=== PATIENT | female | born 1980 | race Caucasian/White ===

== ENCOUNTER → 2018-09-16 | Outpatient (CLI) | payer BC ==
[~2018-09-16] MED LIST: ALBU90OI INH; ALPR.5 PO; AMOX500 PO; BUPR150ER PO; CEPH500 PO; HYDACE5 PO; Kristalose20 GM PO; MULVITMINE; TERC.8TC PV
== END | disposition home or self-care (01) ==
LOC: PLD 09:46 → LAB SHORT 09:46
DX: D22.71 Melanocytic nevi of right lower limb, including hip (principal); L81.4 Other melanin hyperpigmentation
CPT/HCPCS: 88305

== ENCOUNTER → 2019-05-12 | Outpatient (CLI) | payer BC | LOC: LAB SHORT 13:45 → LAB 13:45 → LAB FUT 04-21 13:10 | PROVIDERS: Physician Assistant | DX: R63.4 Abnormal weight loss (principal) | CPT/HCPCS: 82656; 83993 ==

== ENCOUNTER 2020-07-06 09:19 | Day surgery (SDC) | payer BC ==
[~2020-07-06] VITALS: Ht 165.1 cm; Wt 69.9 kg
[~2020-07-06 09:19] MED LIST changes: +ATEN25 PO; +Cortef5 MG PO; +Inderal 20 mg T20 MG PO; +PROG100 PO
[2020-07-06] MEDS ORDERED: Naltrexone HCl50 MG PO (09:44)
--- NOTE | 2020-07-06 11:11 | NUR ---
07/06/20 1111 Allie Interiano INTERSCALENE NERVE BLOCK PERFORMED IN PRE-OP 1056: TIME OUT COMPLETE 1057: SITE CHECK PERFORMED; 2MG VERSED IVP ADMINISTERED BY DR. LAU 1059: PROCEDURE START 1105: PROCEDURE END PULSE OX ON PATIENT THROUGHOUT PROCEDURE. PT TOLERATED WELL, NO ISSUES OR COMPLICATIONS.
--- NOTE | 2020-07-06 11:54 | NUR ---
07/06/20 1154 Amada Hays 1MG EPI IN EACH OF THE FIRST 3 BAGS OF LR USED FOR JOINT IRRIGATION DURING SURGERY.
--- NOTE | 2020-07-06 12:43 | NUR ---
07/06/20 1243 [place],Antoinette ARRIVED WITH RAPID HEART RATE IN 140'S. DR. LAU AT BEDSIDE AND GAVE 30MG ESMOLOL IV. RATE DECREASED TO 100'S. CO NAUSEA. MEDICATED WITH [address] LAU.
--- NOTE | 2020-07-06 12:44 | NUR ---
07/06/20 1244 [place],Antoinette HEART RATE REMAINING IN 100'S. NAUSEA RESOLVED PER PAT. DRINKING HOT TEA WITHOUT PROBLEM. SHOULDER ICED AND ELEVATED.
== END 2020-07-06 13:15 | disposition home or self-care (01) ==
LOC: ORSCSDS 09:19
DX: S46.001A Unspecified injury of muscle(s) and tendon(s) of the rotator cuff of right shoulder, initial encounter (principal); M75.21 Bicipital tendinitis, right shoulder; M75.41 Impingement syndrome of right shoulder; K21.9 Gastro-esophageal reflux disease without esophagitis; Z87.891 Personal history of nicotine dependence; F41.8 Other specified anxiety disorders; M79.7 Fibromyalgia; Z79.899 Other long term (current) drug therapy
CPT/HCPCS: C1713; J0171; J0690; J1100; J2250; J2370; J2405; J2704; J2765; J3010; J7120

== ENCOUNTER → 2022-04-30 | Outpatient (CLI) | payer OTHER ==
[~2022-04-30] MED LIST changes: +Armour Thyroid15 MG PO; +Celexa10 MG PO; +Inderal40 MG PO; +LEVOTHYROXINE200 MCG; +Naltrexone HCl50 MG PO; +OMEP20ER PO; +TRAZ50 PO
== END ==
LOC: LAB SHORT 11:50 → LAB 11:50
DX: K92.1 Melena (principal); R00.0 Tachycardia, unspecified; A04.8 Other specified bacterial intestinal infections; R53.83 Other fatigue; G47.00 Insomnia, unspecified
CPT/HCPCS: 83993

== ENCOUNTER 2022-05-01 12:21 | Observation (INO) | payer OTHER ==
[~2022-05-01] VITALS: Ht 165.1 cm; Wt 78.9 kg
[~2022-05-01 12:21] MED LIST changes: -Armour Thyroid15 MG PO; -Celexa10 MG PO; -Inderal40 MG PO; -LEVOTHYROXINE200 MCG; -OMEP20ER PO; -TRAZ50 PO
[2022-05-01 13:39] LABS: BASOPHILS ABSOLUTE AUTO 0.06 K/mm3 (0.00-0.23); BASOPHILS PERCENT AUTO 1 % (0-2); EOSINOPHILS ABSOLUTE AUTO 0.11 K/mm3 (0.00-0.68); EOSINOPHILS PERCENT AUTO 1 % (0-6); Hematocrit 41.1 % (33.0-51.0); Hemoglobin 13.9 g/dL (11.5-16.0); IMMATURE GRAN ABSOLUTE AUTO 0.02 K/mm3 (0.00-0.10); IMMATURE GRAN PERCENT AUTO 0 % (0-1); LYMPHOCYTES ABSOLUTE AUTO 3.21 K/mm3 (0.84-5.20); LYMPHOCYTES PERCENT AUTO 37 % (21-46); MONOCYTES ABSOLUTE AUTO 0.97 K/mm3 (0.16-1.47); MONOCYTES PERCENT AUTO 11 % (4-13); Mean Corpuscular HGB Conc 33.8 g/dL (31.5-36.5); Mean Corpuscular Volume 89 fL (80-100); Mean Platelet Volume 10.2 fL (9.1-12.4); NEUTROPHILS ABSOLUTE AUTO 4.37 K/mm3 (1.96-9.15); NEUTROPHILS PERCENT AUTO 50 % (41-73); Platelet Count 283 K/mm3 (150-400); RDW Coefficient Variation 11.5 % (11.7-14.2); RDW Standard Deviation 36.8 fL (35.1-46.3); Red Blood Cell Count 4.63 M/mm3 (3.80-5.20); White Blood Cell Count 8.74 K/mm3 (4.00-11.30)
[2022-05-01 13:47] LABS: Albumin, Blood 3.8 g/dL (3.4-5.0); Bilirubin, Total 0.3 mg/dL (0.1-1.0); Bun/Creatinine Ratio 19.9 (12.0-20.0); Creatinine, Blood 0.6 mg/dL (0.40-1.00); Potassium, Blood 3.2 mmol/L (3.5-5.5); Total Protein, Blood 7.8 g/dL (6.4-8.2)
[2022-05-01] MEDS ORDERED: Celexa10 MG PO (16:52)
[2022-05-01] MEDS ORDERED: LEVOTHYROXINE200 MCG (16:53)
[2022-05-01] MEDS ORDERED: TRAZ50 PO (16:54)
[2022-05-01] MEDS ORDERED: OMEP20ER PO (16:54)
[2022-05-01] MEDS ORDERED: Inderal40 MG PO (16:57)
--- NOTE | 2022-05-01 18:20 | NUR ---
PT ADMITTED TO ROOM 358 FROM ED IN WHEELCHAIR, AMBULATES TO BED, STEADY ON FEET. 1730- ORIENTED TO ROOM SET UP AND CALL LIGHT AND SAFETY. MOM ACCOMPANYING PT. STARTED IV LR AND KCL RIDER. PT WENT TO BATHROOM AND STATES SHE IS POOPING GREENISH BUBBLEY MUCOUS WITH STRINGS OF BRIAN STRANDS. DENIED NAUSEA. CALLED [facility] AND RECEIVED TRAZADONE ORDER HS AND SHE CAN HAVE CLEAR LIQ DIET UNTIL MIDNIGHT.
[2022-05-02 04:52] LABS: Hematocrit 33.5 % (33.0-51.0); Hemoglobin 11.5 g/dL (11.5-16.0); Mean Corpuscular HGB 30.1 pg (26.0-34.0); Mean Corpuscular HGB Conc 34.3 g/dL (31.5-36.5); Mean Corpuscular Volume 88 fL (80-100); Mean Platelet Volume 9.9 fL (9.1-12.4); Platelet Count 245 K/mm3 (150-400); RDW Coefficient Variation 11.5 % (11.7-14.2); RDW Standard Deviation 36.7 fL (35.1-46.3); Red Blood Cell Count 3.82 M/mm3 (3.80-5.20); White Blood Cell Count 8.21 K/mm3 (4.00-11.30)
[2022-05-02 05:16] LABS: Bun/Creatinine Ratio 14.2 (12.0-20.0); Calcium, Blood 8.4 mg/dL (8.5-10.1); Creatinine, Blood 0.63 mg/dL (0.40-1.00); Potassium, Blood 3.7 mmol/L (3.5-5.5)
--- NOTE | 2022-05-02 07:44 | NUR ---
NOC SHIFT SUMMARY PT ADMITTED FOR MULTIPLE EPISODES OF BLOODY DIARRHEA. EGD/COLONOSCOPY THIS AM. PREP STARTED AT 0700. IVF INFUSING AT 150. PT AAOX4; AT [facility] IN ROOM. PT REPORTS 5-6 EPISODES OF BLOODY LOOSE STOOLS OVERNIGHT. PLAN TO BE DETERMINED BASED ON FINDINGS. NO ISSUES NOTED.
[2022-05-02 09:16] LABS: Influenza A, PCR NEGATIVE (NEGATIVE); Influenza B, PCR NEGATIVE (NEGATIVE); Resp Syncytial Virus, PCR NEGATIVE (NEGATIVE); SARS-Cov-2 (COVID-19) PCR, MMC NEGATIVE (NEGATIVE)
--- NOTE | 2022-05-02 18:32 | NUR ---
SHIFT SUMMARY A&O X 4. VSS. COOPERATIVE & PLEASANT WITH ALL CARE. COMPLETED BOWEL PREP THIS MORNING, HAS BEEN NPO ORDERED. COLONOSCOPY HAS BEEN POSTPONED TIL TOMORROW AM. DR. CABALLERO ORDERED A CLEAR LIQ DIET FOR DINNER TONIGHT THEN NPO AFTER MN AND PT TO DO 1 BOTTLE OF SAME PREP SHE DID THIS AM. IS INDEPENDENT IN THE ROOM FOR RESTROOM USE. SHE STATES HER BLEEDING HAS STOPPED BUT HAS NOTICED MUCUOS IN HER STOOL.
[2022-05-03] MEDS ORDERED: Armour Thyroid15 MG PO (06:05)
--- NOTE | 2022-05-03 06:17 | NUR ---
NOC SHIFT SUMMARY PT'S EGD/COLONOSCOPY POSTPONED FROM YESTERDAY DUE TO SCHEDULING CONFLICT. SCHEDULED FOR THIS AFTERNOON; PREP TO START AT 1000. NO ISSUES NOTED.
[2022-05-03 08:40] LABS: Hematocrit 34.7 % (33.0-51.0)
--- NOTE | 2022-05-03 12:10 | NUR ---
PT RECENTLY TO DAYSURGERY BY JULIÁN. PT REPORTS HAVING PREP FINISHING IT AT 10:OO AM TODAY. Patient states colon prep results clear. History, Chart, Medications and Allergies reviewed before start of procedure.Lungs clear T/O to Auscultation. Pre-Op teaching done. Pt verbalizes understanding.
--- NOTE | 2022-05-03 14:45 | NUR ---
05/03/22 1445 Moy Hopper HISTORY, CHART, MEDICATIONS AND ALLERGIES REVIEWED BEFORE START OF PROCEDURE. PATIENT CONFIRMS NPO STATUS AND AGREES WITH SCHEDULED PROCEDURE. 3-LEAD EKG REVIEWED WITH PHYSICIAN PRIOR TO START OF PROCEDURE. MONITOR INTACT WITH CONTINUOUS PULSE OXIMETRY,CAPNOGRAPHY, 3-LEAD EKG, INTERMITTENT BP. SUPPLEMENTAL O2 TO BE TITRATED THROUGHOUT PROCEDURE TO MAINTAIN O2 SATURATION ABOVE 90%. PATIENT DETERMINED TO BE ASA APPROPRIATE FOR PROPOFOL SEDATION PRIOR TO START OF PROCEDURE BY DR. CABALLERO.
--- NOTE | 2022-05-03 15:40 | NUR ---
LATE ENTRY/TO COLONOSCOPY DAY SURGERY PERSONNEL CAME TO NURSERYMAN ASSISTANT PT WITH J[facility] TO TAKE HER FOR HER GI PROCEDURE. BOWEL PREP COMPLETED & PT HAS BEEN NPO.
--- NOTE | 2022-05-03 15:51 | NUR ---
REPORT FROM TANKROOM WORKER ABELARDO PT HAD HER EGD & COLONOSCOPY. RECEIVED PROPOFOL, VERSED AND 850CCS OF IVF's AND IS AWAKE AND READY TO RETURN TO MED BED IN HER ROOM, 358. PER RNHER EGD SHOWED IRRITATION IN HER DUODENUM AND JEJUNUM THAT WAS BIOPSIED. HER COLONOSCOPY SHOWED IRRITATION AND WAS ALSO BIOPSIED. PER REPORT A NEW PIV WAS STARTED IN R HAND WITH A 22G BY DAY SURGERY STAFF. AWAITING PT'S RETURN TO MED FLOOR.
--- NOTE | 2022-05-03 16:43 | NUR ---
LATE ENTRY/RETURN FROM GI PROCEDURES 1600: PT RETURNED TO FLOOR VIA GURNEY. PLACED IN BED, MADE COMFORTABLE, AWAKE AND ABLE TO AMBULATE TO RESTROOM. IS PASSING GAS WITHOUT DIFFICULTY. VSS. MOM AT BEDSIDE WITH PT.
[2022-05-03 17:21] LABS: Percent Saturation 12.9 % (15.0-50.0)
[2022-05-03 17:25] LABS: C-Reactive Protein, High Sens. 18.7 mg/L (0.000-3.000)
[2022-05-03 17:54] LABS: Rubella Antibody, IgG 66.3 IU/mL (15-)
--- NOTE | 2022-05-03 18:36 | NUR ---
SHIFT SUMMARY PT HAD HER GI PROCEDURES TODAY. IS A&O X 4. INDEPENDENT IN THE ROOM. VSS. NO COMPLAINTS OF PAIN OR SOB. IS PASSING GAS WITHOUT DIFFICULTY. ANTICIPATES DC POSSIBLY THIS EVENING OR TOMORROW.
--- NOTE | 2022-05-03 21:29 | NUR ---
DISCHARGE PER DAYSHIFT REPORT, DR. CABALLERO ROUNDED LATE ON PATIENT AND TOLD PATIENT SHE COULD DISCARGE. PATIENT WANTING TO GO HOME. DR. CABALLERO CALLED TO CLARIFY DISCAHRGE MEDICATIONS. DR. RUIZ CALLED AND AGREEABLE TO DISCHARGE. PATIENT TRANSPORTED VIA WHEELCHAIR TO PRIVATE VEHICLE. DISCHARGE INSTRUCTIONS EXPLAINED TO PATIENT. PATIENT STATED UNDERSTANDING. PACKET SENT WITH PATIENT. NO NEW MEDICATIONS. PER DR. CABALLERO, WILL DISCUSS TREATMENT OPTIONS OUTPATIENT. IV REMOVED WITHOUT DIFFICULTY. BELONGINGS SENT WITH PATIENT. PATIENT VERY HAPPY TO GO HOME. PATIENT TO SCHEDULE FOLLOW UP WITH PCP. DR. CABALLERO OFFICE TO CALL PATIENT TO SCHEDULE FOLLOW UP.
[2022-05-04 06:10] LABS: HBSAG SCREEN Negative (Negative); HCV ANTIBODY <0.1 (0.0-0.9); HEP B CORE AB, TOT Negative (Negative)
[2022-05-04 10:10] LABS: EBV AB VCA, IGG 64.8 U/mL (0.0-17.9); EBV AB VCA, IGM <36.0 U/mL (0.0-35.9)
[2022-05-07 15:10] LABS: QUANTIFERON MITOGEN VALUE >10.00 IU/mL (.); QUANTIFERON NIL VALUE 0.03 IU/mL (.); QUANTIFERON TB1 AG VALUE 0.06 IU/mL (.); QUANTIFERON TB2 AG VALUE 0.08 IU/mL (.); QUANTIFERON-TB GOLD PLUS Negative (Negative)
== END 2022-05-03 21:01 | disposition home or self-care (01) ==
LOC: ER 12:21 → MEDS 12:22
PROVIDERS: Internal Medicine; Internal Medicine Gastroenterology; Physician Assistant; ADMIT Internal Medicine
DX: K58.2 Mixed irritable bowel syndrome (principal); K62.5 Hemorrhage of anus and rectum; K63.3 Ulcer of intestine; K44.9 Diaphragmatic hernia without obstruction or gangrene; K31.7 Polyp of stomach and duodenum; E87.6 Hypokalemia; E03.9 Hypothyroidism, unspecified; E27.40 Unspecified adrenocortical insufficiency; R42 Dizziness and giddiness; M79.7 Fibromyalgia; M32.9 Systemic lupus erythematosus, unspecified; Z87.891 Personal history of nicotine dependence; Z91.011 Allergy to milk products; Z91.018 Allergy to other foods; Z86.010 Personal history of colon polyps; Z80.0 Family history of malignant neoplasm of digestive organs
CPT/HCPCS: 0241U; 36415; 80048; 80053; 82306; 82728; 83540; 83550; 83690; 83735; 84443; 85014; 85018; 85025; 85027; 86141; 86317; 86480; 86664; 86665; 86704; 86708; 86735; 86762; 86765; 86803; 86850; 86900; 86901; 87340; 88305; 88342; 96365; 96366; 96374; 96375; 96376; 99284-25; A9270; G0378; J2250; J2405; J2704; J3480; J7050; J7120

== ENCOUNTER → 2022-11-20 | Outpatient (CLI) | payer BC ==
[~2022-11-20] MED LIST changes: +Armour Thyroid15 MG PO; +Celexa10 MG PO; +EMTRICITABINE-1 EAC1 PO; +Inderal40 MG PO; +KALETRA 100-251 EACH PO; +LEVOTHYROXINE200 MCG; +OMEP20ER PO; +TRAZ50 PO
== END | disposition home or self-care (01) ==
LOC: LAB 08:30 → LAB SHORT 08:30
DX: L08.0 Pyoderma (principal)
CPT/HCPCS: 87070; 87205

== ENCOUNTER 2023-03-04 09:48 | Day surgery (SDC) | payer BC ==
[~2023-03-04] VITALS: Ht 165.1 cm; Wt 81.6 kg
--- NOTE | 2023-03-04 10:30 | NUR ---
PT REPORTS THAT SHE HAS INTERMITTENT SVT. IN 2019 AFTER A SHOULDER SURGERY, SHE WENT INTO SVT AT THE [facility]. PT TAKES PROPANOLOL PRN TO MANAGE IT, LAST USE WAS ONE MONTH AGO PER PT REPORT.
[2023-03-04 11:57] VITALS: BP 115/74
== END 2023-03-04 11:59 | disposition home or self-care (01) ==
LOC: ORSCSDS 09:48
PROVIDERS: Specialist
PROC: 0DB98ZX Excision of Duodenum, Via Natural or Artificial Opening Endoscopic, Diagnostic (ICD-10-PCS; principal; 2023-03-04 11:45)
PROC: 0DBE8ZX Excision of Large Intestine, Via Natural or Artificial Opening Endoscopic, Diagnostic (ICD-10-PCS; principal; 2023-03-04 11:45)
PROC: 0DB58ZX Excision of Esophagus, Via Natural or Artificial Opening Endoscopic, Diagnostic (ICD-10-PCS; principal; 2023-03-04 11:45)
PROC: 0DB78ZX Excision of Stomach, Pylorus, Via Natural or Artificial Opening Endoscopic, Diagnostic (ICD-10-PCS; principal; 2023-03-04 11:45)
DX: K21.9 Gastro-esophageal reflux disease without esophagitis (principal); R13.10 Dysphagia, unspecified; K50.90 Crohn's disease, unspecified, without complications; K59.09 Other constipation; H44.9 Unspecified disorder of globe; K29.70 Gastritis, unspecified, without bleeding; K64.8 Other hemorrhoids; E03.9 Hypothyroidism, unspecified; Z87.891 Personal history of nicotine dependence; Z79.899 Other long term (current) drug therapy
CPT/HCPCS: 88305; 88342; J2250; J2704; J7120

== ENCOUNTER → 2023-08-31 | Outpatient (CLI) | payer BC ==
[2023-08-31 18:16] LABS: BASOPHILS ABSOLUTE AUTO 0.07 K/mm3 (0.00-0.23); BASOPHILS PERCENT AUTO 1 % (0-2); EOSINOPHILS ABSOLUTE AUTO 0.09 K/mm3 (0.00-0.68); EOSINOPHILS PERCENT AUTO 1 % (0-6); Hemoglobin 14.8 g/dL (11.5-16.0); IMMATURE GRAN ABSOLUTE AUTO 0.01 K/mm3 (0.00-0.10); IMMATURE GRAN PERCENT AUTO 0 % (0-1); LYMPHOCYTES PERCENT AUTO 42 % (21-46); MONOCYTES ABSOLUTE AUTO 0.66 K/mm3 (0.16-1.47); MONOCYTES PERCENT AUTO 7 % (4-13); Mean Corpuscular HGB 29.8 pg (26.0-34.0); Mean Corpuscular HGB Conc 34.4 g/dL (31.5-36.5); Mean Corpuscular Volume 87 fL (80-100); Mean Platelet Volume 11.7 fL (9.1-12.4); NEUTROPHILS ABSOLUTE AUTO 4.43 K/mm3 (1.96-9.15); NEUTROPHILS PERCENT AUTO 49 % (41-73); Platelet Count 302 K/mm3 (150-400); RDW Coefficient Variation 11.6 % (11.7-14.2); RDW Standard Deviation 36.9 fL (35.1-46.3); Red Blood Cell Count 4.97 M/mm3 (3.80-5.20); White Blood Cell Count 9.06 K/mm3 (4.00-11.30)
[2023-08-31 18:45] LABS: Albumin, Blood 3.9 g/dL (3.4-5.0); Bilirubin, Total 0.3 mg/dL (0.1-1.0); Bun/Creatinine Ratio 26.7 (12.0-20.0); Calcium, Blood 9.4 mg/dL (8.5-10.1); Creatinine, Blood 0.71 mg/dL (0.40-1.00); Globulin, Blood 3.8 g/dL (2.2-4.0); Potassium, Blood 3.6 mmol/L (3.5-5.5); Total Protein, Blood 7.7 g/dL (6.4-8.2)
== END | disposition home or self-care (01) ==
LOC: LAB 13:14 → LAB SHORT 13:14
PROVIDERS: Physician Assistant
DX: K50.90 Crohn's disease, unspecified, without complications (principal)
CPT/HCPCS: 80053; 85025

== ENCOUNTER 2023-09-01 15:17 | Emergency (ER) | payer BC ==
[~2023-09-01] VITALS: Ht 165.1 cm; Wt 83.9 kg
[2023-09-01 16:25] LABS: BASOPHILS ABSOLUTE AUTO 0.05 K/mm3 (0.00-0.23); BASOPHILS PERCENT AUTO 1 % (0-2); EOSINOPHILS PERCENT AUTO 1 % (0-6); Hematocrit 39.9 % (33.0-51.0); Hemoglobin 13.7 g/dL (11.5-16.0); IMMATURE GRAN ABSOLUTE AUTO 0.02 K/mm3 (0.00-0.10); IMMATURE GRAN PERCENT AUTO 0 % (0-1); LYMPHOCYTES ABSOLUTE AUTO 4.41 K/mm3 (0.84-5.20); LYMPHOCYTES PERCENT AUTO 51 % (21-46); MONOCYTES PERCENT AUTO 7 % (4-13); Mean Corpuscular HGB 29.8 pg (26.0-34.0); Mean Corpuscular HGB Conc 34.3 g/dL (31.5-36.5); Mean Corpuscular Volume 87 fL (80-100); Mean Platelet Volume 10.7 fL (9.1-12.4); NEUTROPHILS ABSOLUTE AUTO 3.53 K/mm3 (1.96-9.15); NEUTROPHILS PERCENT AUTO 41 % (41-73); Platelet Count 264 K/mm3 (150-400); RDW Coefficient Variation 11.6 % (11.7-14.2); Red Blood Cell Count 4.59 M/mm3 (3.80-5.20); White Blood Cell Count 8.71 K/mm3 (4.00-11.30)
[2023-09-01 16:49] LABS: Albumin, Blood 3.5 g/dL (3.4-5.0); Albumin/Globulin Ratio 1.1 (0.8-1.8); Bilirubin, Total 0.2 mg/dL (0.1-1.0); Bun/Creatinine Ratio 18.8 (12.0-20.0); Calcium, Blood 8.9 mg/dL (8.5-10.1); Creatinine, Blood 0.69 mg/dL (0.40-1.00); Globulin, Blood 3.3 g/dL (2.2-4.0); Potassium, Blood 3.6 mmol/L (3.5-5.5); Total Protein, Blood 6.8 g/dL (6.4-8.2)
[2023-09-01] MEDS ORDERED: Promethazine HCl 25 MG Tab PO ONE (21:00)
[2023-09-01] MEDS ORDERED: Ondansetron HCl 2 MG / ML 2ML Vial IV ONE (21:20)
[2023-09-01] MEDS ORDERED: NS 1,000 ML IV SCH (21:20)
[2023-09-01 22:15] VITALS: BP 119/87
== END 2023-09-01 22:49 | disposition home or self-care (01) ==
LOC: ER 15:17
PROVIDERS: Physician Assistant
DX: K50.90 Crohn's disease, unspecified, without complications (principal); M32.9 Systemic lupus erythematosus, unspecified; F32.A Depression, unspecified; F17.290 Nicotine dependence, other tobacco product, uncomplicated; Z91.011 Allergy to milk products; Z91.018 Allergy to other foods; Z79.899 Other long term (current) drug therapy
CPT/HCPCS: 80053; 83690; 85025; 96361; 96374; 99284-25; A9270; J2405; J7030

== ENCOUNTER → 2024-06-17 | Outpatient (CLI) | payer BC ==
[~2024-06-17] MED LIST changes: +CITALOPRAM HBR20 M9 PO; +ESOMEPRAZOLE MA20 MG PO
[2024-06-19 07:59] LABS: C DIFFICILE DNA NEGATIVE (Negative)
[2024-06-21 18:52] LABS: CALPROTECTIN,FECAL 56 ug/g (<=49)
== END ==
LOC: LAB 17:15 → LAB SHORT 17:15
PROVIDERS: Internal Medicine
DX: K50.819 Crohn's disease of both small and large intestine with unspecified complications (principal); Z51.81 Encounter for therapeutic drug level monitoring; Z79.620 Long term (current) use of immunosuppressive biologic
CPT/HCPCS: 83993; 87493

== ENCOUNTER 2024-06-22 13:32 | Emergency (ER) | payer BC ==
[~2024-06-22] VITALS: Ht 165.1 cm; Wt 86.2 kg
[~2024-06-22 13:32] MED LIST changes: -CITALOPRAM HBR20 M9 PO; -ESOMEPRAZOLE MA20 MG PO
[2024-06-22] MEDS ORDERED: Ondansetron HCl 2 MG / ML 2ML Vial IV ONE (14:15)
[2024-06-22 15:10] LABS: BASOPHILS ABSOLUTE AUTO 0.11 K/mm3 (0.00-0.23); BASOPHILS PERCENT AUTO 1 % (0-2); EOSINOPHILS ABSOLUTE AUTO 0.11 K/mm3 (0.00-0.68); EOSINOPHILS PERCENT AUTO 1 % (0-6); Hematocrit 41.5 % (33.0-51.0); Hemoglobin 14.3 g/dL (11.5-16.0); IMMATURE GRAN ABSOLUTE AUTO 0.02 K/mm3 (0.00-0.10); IMMATURE GRAN PERCENT AUTO 0 % (0-1); LYMPHOCYTES ABSOLUTE AUTO 4.17 K/mm3 (0.84-5.20); LYMPHOCYTES PERCENT AUTO 46 % (21-46); MONOCYTES ABSOLUTE AUTO 0.69 K/mm3 (0.16-1.47); MONOCYTES PERCENT AUTO 8 % (4-13); Mean Corpuscular HGB 30.2 pg (26.0-34.0); Mean Corpuscular HGB Conc 34.5 g/dL (31.5-36.5); Mean Corpuscular Volume 88 fL (80-100); Mean Platelet Volume 10.3 fL (9.1-12.4); NEUTROPHILS ABSOLUTE AUTO 4.07 K/mm3 (1.96-9.15); NEUTROPHILS PERCENT AUTO 44 % (41-73); Platelet Count 287 K/mm3 (150-400); RDW Coefficient Variation 11.6 % (11.7-14.2); RDW Standard Deviation 37.5 fL (35.1-46.3); Red Blood Cell Count 4.73 M/mm3 (3.80-5.20); White Blood Cell Count 9.17 K/mm3 (4.00-11.30)
[2024-06-22 15:30] LABS: Albumin, Blood 3.9 g/dL (3.4-5.0); Bilirubin, Total 0.3 mg/dL (0.1-1.0); Bun/Creatinine Ratio 19.5 (12.0-20.0); Calcium, Blood 9.4 mg/dL (8.5-10.1); Creatinine, Blood 0.77 mg/dL (0.40-1.00); Globulin, Blood 3.8 g/dL (2.2-4.0); Potassium, Blood 3.8 mmol/L (3.5-5.5); Total Protein, Blood 7.7 g/dL (6.4-8.2)
[2024-06-22] MEDS ORDERED: Morphine Sulfate 4 MG/1 ML Injection IV ONE (18:05)
[2024-06-22] MEDS ORDERED: ESOMEPRAZOLE MA20 MG PO (18:10)
[2024-06-22] MEDS ORDERED: CITALOPRAM HBR20 M9 PO (18:10)
[2024-06-22] MEDS ORDERED: Prochlorperazine Edisylate 10 mg Vial IV ONE (18:15)
[2024-06-22] MEDS ORDERED: Lactated Ringer's 1,000 ML IV SCH (18:45)
[2024-06-22] MEDS ORDERED: DiphenhydrAMINE HCl 50 MG/ML 1ML Vial IV ONE (19:20)
[2024-06-22 19:51] VITALS: BP 117/82
== END 2024-06-22 19:52 | disposition home or self-care (01) ==
LOC: ER 13:32
PROVIDERS: Physician Assistant
DX: R11.2 Nausea with vomiting, unspecified (principal); R10.9 Unspecified abdominal pain; F17.290 Nicotine dependence, other tobacco product, uncomplicated; Z79.899 Other long term (current) drug therapy; Z91.040 Latex allergy status; Z91.048 Other nonmedicinal substance allergy status
CPT/HCPCS: 74177; 80053; 84703; 85025; 96361; 96374-59; 96375; 99284-25; J0780; J1200; J2270; J7120; Q9967

== ENCOUNTER → 2024-07-06 | Outpatient (CLI) | payer BC ==
[~2024-07-06] MED LIST changes: +CITALOPRAM HBR20 M9 PO; +ESOMEPRAZOLE MA20 MG PO
[2024-07-06 18:29] LABS: BASOPHILS ABSOLUTE AUTO 0.08 K/mm3 (0.00-0.23); BASOPHILS PERCENT AUTO 1 % (0-2); EOSINOPHILS ABSOLUTE AUTO 0.08 K/mm3 (0.00-0.68); EOSINOPHILS PERCENT AUTO 1 % (0-6); Hematocrit 40.1 % (33.0-51.0); Hemoglobin 13.6 g/dL (11.5-16.0); IMMATURE GRAN ABSOLUTE AUTO 0.01 K/mm3 (0.00-0.10); IMMATURE GRAN PERCENT AUTO 0 % (0-1); LYMPHOCYTES ABSOLUTE AUTO 4.05 K/mm3 (0.84-5.20); LYMPHOCYTES PERCENT AUTO 50 % (21-46); MONOCYTES ABSOLUTE AUTO 0.85 K/mm3 (0.16-1.47); MONOCYTES PERCENT AUTO 11 % (4-13); Mean Corpuscular HGB 29.8 pg (26.0-34.0); Mean Corpuscular HGB Conc 33.9 g/dL (31.5-36.5); Mean Corpuscular Volume 88 fL (80-100); Mean Platelet Volume 10.9 fL (9.1-12.4); NEUTROPHILS ABSOLUTE AUTO 3.02 K/mm3 (1.96-9.15); NEUTROPHILS PERCENT AUTO 37 % (41-73); Platelet Count 227 K/mm3 (150-400); RDW Coefficient Variation 11.9 % (11.7-14.2); RDW Standard Deviation 38.1 fL (35.1-46.3); Red Blood Cell Count 4.57 M/mm3 (3.80-5.20); White Blood Cell Count 8.09 K/mm3 (4.00-11.30)
[2024-07-06 18:49] LABS: Albumin, Blood 4.1 g/dL (3.4-5.0); Albumin/Globulin Ratio 1.1 (0.8-1.8); Bilirubin, Total 0.2 mg/dL (0.1-1.0); Bun/Creatinine Ratio 18.7 (12.0-20.0); Calcium, Blood 9.3 mg/dL (8.5-10.1); Creatinine, Blood 0.75 mg/dL (0.40-1.00); Globulin, Blood 3.9 g/dL (2.2-4.0); Potassium, Blood 3.4 mmol/L (3.5-5.5); Thyroid Stimulating Hormone 1.28 uIU/mL (0.360-4.800)
== END ==
LOC: LAB 18:25 → LAB SHORT 18:25
PROVIDERS: Chiropractor
DX: R53.83 Other fatigue (principal)
CPT/HCPCS: 80053; 84443; 85025

== ENCOUNTER 2024-09-26 09:08 | Emergency (ER) | payer BC ==
[~2024-09-26] VITALS: Ht 165.1 cm; Wt 81.7 kg
[2024-09-26] MEDS ORDERED: NS 1,000 ML IV SCH (09:25)
[2024-09-26 10:20] LABS: BASOPHILS ABSOLUTE AUTO 0.02 K/mm3 (0.00-0.23); BASOPHILS PERCENT AUTO 0 % (0-2); EOSINOPHILS ABSOLUTE AUTO 0.01 K/mm3 (0.00-0.68); EOSINOPHILS PERCENT AUTO 0 % (0-6); Hematocrit 41.6 % (33.0-51.0); Hemoglobin 14.3 g/dL (11.5-16.0); IMMATURE GRAN ABSOLUTE AUTO 0.01 K/mm3 (0.00-0.10); IMMATURE GRAN PERCENT AUTO 0 % (0-1); LYMPHOCYTES ABSOLUTE AUTO 2.41 K/mm3 (0.84-5.20); LYMPHOCYTES PERCENT AUTO 38 % (21-46); MONOCYTES ABSOLUTE AUTO 0.75 K/mm3 (0.16-1.47); MONOCYTES PERCENT AUTO 12 % (4-13); Mean Corpuscular HGB 29.7 pg (26.0-34.0); Mean Corpuscular HGB Conc 34.4 g/dL (31.5-36.5); Mean Corpuscular Volume 86 fL (80-100); Mean Platelet Volume 10.4 fL (9.1-12.4); NEUTROPHILS ABSOLUTE AUTO 3.21 K/mm3 (1.96-9.15); NEUTROPHILS PERCENT AUTO 50 % (41-73); Platelet Count 204 K/mm3 (150-400); RDW Coefficient Variation 11.9 % (11.7-14.2); RDW Standard Deviation 37.8 fL (35.1-46.3); Red Blood Cell Count 4.82 M/mm3 (3.80-5.20); White Blood Cell Count 6.41 K/mm3 (4.00-11.30)
[2024-09-26] MEDS ORDERED: HUMIRA SQ (10:23)
[2024-09-26 10:41] LABS: Albumin, Blood 3.7 g/dL (3.4-5.0); Bilirubin, Total 0.4 mg/dL (0.1-1.0); Calcium, Blood 8.8 mg/dL (8.5-10.1); Creatinine, Blood 0.75 mg/dL (0.40-1.00); Globulin, Blood 3.8 g/dL (2.2-4.0); Magnesium, Blood 1.4 mg/dL (1.6-2.4); Phosphorus, Blood 1.4 mg/dL (2.5-4.9); Potassium, Blood 3.3 mmol/L (3.5-5.5); Total Protein, Blood 7.5 g/dL (6.4-8.2)
[2024-09-26] MEDS ORDERED: Potassium Chloride 20 MEQ TabCR PO ONE (10:55)
[2024-09-26] MEDS ORDERED: Mag Sulfate 1 GM/D5% 100ML 100 ML IV ONE (10:55)
[2024-09-26 10:57] LABS: Influenza B, PCR NEGATIVE (NEGATIVE); Resp Syncytial Virus, PCR NEGATIVE (NEGATIVE); SARS-Cov-2 (COVID-19) PCR, MMC NEGATIVE (NEGATIVE)
[2024-09-26 11:11] LABS: Influenza A, PCR POSITIVE (NEGATIVE)
[2024-09-26] MEDS ORDERED: ONDA4ODT MM (11:55)
[2024-09-26 12:53] VITALS: BP 118/89
== END 2024-09-26 12:49 | disposition home or self-care (01) ==
LOC: ER 09:08
PROVIDERS: Emergency Medicine
DX: J10.1 Influenza due to other identified influenza virus with other respiratory manifestations (principal); E87.6 Hypokalemia; E83.42 Hypomagnesemia; Z91.011 Allergy to milk products; Z91.048 Other nonmedicinal substance allergy status; Z79.891 Long term (current) use of opiate analgesic; Z79.899 Other long term (current) drug therapy; Z87.891 Personal history of nicotine dependence
CPT/HCPCS: 0241U; 71046; 80053; 83735; 84100; 85025; 96361; 96365; 99284-25; A9270; J3475; J7030

== ENCOUNTER → 2025-02-06 | Outpatient (CLI) | payer BC ==
[~2025-02-06] MED LIST changes: +HUMIRA SQ; +ONDA4ODT MM
[2025-02-06 14:10] LABS: BASOPHILS ABSOLUTE AUTO 0.05 K/mm3 (0.00-0.23); BASOPHILS PERCENT AUTO 1 % (0-2); EOSINOPHILS ABSOLUTE AUTO 0.08 K/mm3 (0.00-0.68); EOSINOPHILS PERCENT AUTO 1 % (0-6); Hematocrit 40.7 % (33.0-51.0); Hemoglobin 14.1 g/dL (11.5-16.0); IMMATURE GRAN ABSOLUTE AUTO 0.01 K/mm3 (0.00-0.10); IMMATURE GRAN PERCENT AUTO 0 % (0-1); LYMPHOCYTES ABSOLUTE AUTO 3.19 K/mm3 (0.84-5.20); LYMPHOCYTES PERCENT AUTO 35 % (21-46); MONOCYTES ABSOLUTE AUTO 0.79 K/mm3 (0.16-1.47); MONOCYTES PERCENT AUTO 9 % (4-13); Mean Corpuscular HGB Conc 34.6 g/dL (31.5-36.5); Mean Corpuscular Volume 86 fL (80-100); NEUTROPHILS ABSOLUTE AUTO 4.94 K/mm3 (1.96-9.15); NEUTROPHILS PERCENT AUTO 55 % (41-73); NRBC ABSOLUTE 0.00 K/mm3 (0.00-0.02); NRBC Auto 0.0 /100 WBC (0.0-0.2); Platelet Count 282 K/mm3 (150-400); RDW Coefficient Variation 11.8 % (11.7-14.2); RDW Standard Deviation 37.1 fL (35.1-46.3)
[2025-02-06 14:21] LABS: Alanine Aminotransfer (ALT/SGP 90.0 U/L (12-78); Albumin, Blood 3.8 g/dL (3.4-5.0); Albumin/Globulin Ratio 1.0 (0.8-1.8); Anion Gap 14.0 mmol/L (3-11); Aspartate Aminotrans (AST/SGOT 37.0 U/L (12-37); Bilirubin, Total 0.7 mg/dL (0.1-1.0); Blood Urea Nitrogen 16.0 mg/dL (8-24); CO2, Blood 26.0 mmol/L (21-32); Calcium, Blood 9.0 mg/dL (8.5-10.1); Chloride, Blood 100.0 mmol/L (98-108); Creatinine, Blood 0.65 mg/dL (0.40-1.00); Globulin, Blood 4.0 g/dL (2.2-4.0); Glucose, Blood 96.0 mg/dL (70-99); Magnesium, Blood 1.6 mg/dL (1.6-2.4); Potassium, Blood 3.4 mmol/L (3.5-5.5); Sodium, Blood 137.0 mmol/L (136-145); Total Protein, Blood 7.8 g/dL (6.4-8.2)
== END | disposition home or self-care (01) ==
LOC: LAB SHORT 14:05 → LAB 14:05
PROVIDERS: Chiropractor
DX: E87.6 Hypokalemia (principal)
CPT/HCPCS: 80053; 83735; 85025